=== PATIENT | male | born 1945 | race Caucasian/White ===

== ENCOUNTER 2024-03-03 15:32 | Outpatient (CLI) | payer MEDICARE | END 2024-03-03 15:33 | disposition home or self-care (01) | LOC: SCSRAD 15:32 | PROVIDERS: ATTEND Family Medicine | DX: S89.92XA Unspecified injury of left lower leg, initial encounter (principal); I25.84 Coronary atherosclerosis due to calcified coronary lesion; M77.32 Calcaneal spur, left foot ==